=== PATIENT | female | born 1970 | race Caucasian/White ===

== ENCOUNTER 2023-11-10 10:15 | Outpatient (CLI) | payer BC | END 2023-11-10 10:16 | disposition home or self-care (01) | LOC: CSHMAMMO 10:15 | PROVIDERS: ATTEND Nurse Practitioner Family | DX: Z12.31 Encounter for screening mammogram for malignant neoplasm of breast (principal); Z80.3 Family history of malignant neoplasm of breast; Z98.82 Breast implant status | CPT/HCPCS: 77063; 77067 ==

== ENCOUNTER 2025-04-19 12:21 | Outpatient (CLI) | payer BC | END 2025-04-19 12:22 | disposition home or self-care (01) | LOC: CSHDTY/OP 12:21 | PROVIDERS: ATTEND Nurse Practitioner Family | DX: Z71.3 Dietary counseling and surveillance (principal) | CPT/HCPCS: 97802 ==